=== PATIENT | female | born 1990 | race Caucasian/White ===

== ENCOUNTER 2017-05-12 16:15 | Emergency (ER) | payer MEDICAID ==
[~2017-05-12] VITALS: Ht 160 cm; Wt 82.9 kg
[~2017-05-12 16:15] MED LIST: AMOX-291 PO; HYDR-3240 PO; IBUP-1223 PO; PRED50TA PO; PREN1TAB25 PO
[2017-05-12 16:29] VITALS: BP 115/75
== END 2017-05-12 18:07 | disposition home or self-care (01) ==
LOC: ED 18:01
DX: J02.0 Streptococcal pharyngitis (principal)
CPT/HCPCS: 87880; 99283